=== PATIENT | male | born 1940 | race Caucasian/White ===

== ENCOUNTER 2018-12-30 21:57 | Inpatient (IN) | payer MEDICARE ==
[~2018-12-30] VITALS: Ht 188 cm; Wt 105.7 kg
--- NOTE | 2018-12-30 22:15 | ER Report ---
History and Physical Time Seen By MD: 22:04 Hx. of Stated Complaint: HP STATES THAT PATIENT WAS DRIVING AND DISORIENTED. PATIENT DENIES TAKING ANY SUBSTANCES OR ETOH HPI/ROS CHIEF COMPLAINT: longterm clearance HISTORY OF PRESENT ILLNESS: This is a 78 year old male. brought to the ER for longterm clearance. He was pulled over, disoriented, denied any substance abuse. Highway Patrol said he had been weaving all over the road and then was not acting normally. He says that he was sick and did have vomiting yesterday, says both he and his had the stomach bug and were throwing up. He was in [place] and checked out of the hotel late because of vomiting. He had tried to drink water. Highway patrol indicated that there were a lot of pills scattered around the vehicle, they were unable to identify them. The patient does not seem intoxicated. He denies any pain. He has had a mild cough. Allergies: Coded Allergies: No Known Drug Allergies (Unverified , 12/30/18) Home Meds Unable to Obtain Active Prescriptions or Reported Meds Reviewed Nurses Notes: Yes Constitutional Vital Sign - Last 24 Hours 12/30/18 12/30/18 12/30/18 12/30/18 22:05 22:15 22:29 22:34 Temp 100.0 Pulse 84 82 Resp 15 B/P (MAP) 173/88 146/108 (121) Pulse Ox 88 94 O2 Delivery Room Air O2 Flow Rate 2.0 12/30/18 12/30/18 12/30/18 12/30/18 23:00 23:04 23:13 23:30 Pulse ??? B/P (MAP) ???/??? (1615) 169/85 (113) 139/50 (79) 12/30/18 12/31/18 12/31/18 12/31/18 23:34 00:00 00:04 00:32 Pulse 81 79 75 B/P (MAP) 168/86 (113) Pulse Ox 95 99 99 12/31/18 12/31/18 12/31/18 12/31/18 00:37 01:00 01:07 01:30 Pulse 77 70 B/P (MAP) 163/92 (115) 161/80 (107) Pulse Ox 95 94 Intake and Output 412/30/18 12/31/18 14:59 22:59 06:59 Intake Total 1000 ml Balance 1000 ml Physical Exam General Appearance: Alert, no acute distress. He is a little weak. Appears at times to not be fully oriented and mild confusion. Eyes: Pupils equal and round, extraocular movements are intact, reactive to light, no injection. ENT: Normal oral mucosa. Mucous membranes are a little dry. Normal nasal mucosa. Tympanic membranes are normal. Neck: Neck is supple and non tender. Respiratory: Chest is non tender, lungs are clear to auscultation. Cardiac: regular rate and rhythm, normal capillary refill and pulses. Gastrointestinal: Abdomen is soft and non tender, nondistended, bowel sounds normal. Musculoskeletal: Extremities have full range of motion. Non tender. Skin: No rashes or lesions. Neuro: Alert, oriented x 3, but this does seem to wax and wane. Moving all extremities without focal deficits. DIFFERENTIAL DIAGNOSIS: After history and physical exam differential diagnosis was considered for a patient here for legal blood draw and for longterm clearance. There seems to be something not quite right about this situation. He does not appear or smell intoxicated. I feel that there is more likely a medical cause of the problems he is having and wanted to do further workup. Medical Decision Making Data Points Result Diagram: 12/30/18224212/30/182242 Laboratory Hematology Test 12/30/18 22:30 12/30/18 22:43 12/30/18 23:03 Urine Color [place] Urine Clarity Slightly-cloudy Urine pH 5.0 pH (4.8-9.5) Urine Specific [place] 1.027 Urine Protein 30 mg/dL (NEGATIVE) Urine Glucose (UA) Negative mg/dL (NEGATIVE) Urine Ketones Negative mg/dL (NEGATIVE) Urine Blood Small (NEGATIVE) Urine Nitrite Negative (NEGATIVE) Urine Bilirubin Negative (NEGATIVE) Urine Urobilinogen Negative mg/dL (0.2-1.9) Urine Leukocyte Esterase Negative (NEGATIVE) Urine RBC 2 /HPF (0-2/HPF) Urine WBC 1 /HPF (0-5/HPF) Urine Squamous Epithelial Cells Moderate /LPF (</=FEW) Urine Bacteria Negative /HPF (NONE-FEW) Urine Hyaline Casts Few /LPF (NONE-FEW) Urine Mucus Few /HPF (NONE-FEW) Urine Opiates Screen Negative Urine Barbiturates Screen Negative Ur Tricyclic Antidepressants Screen Negative Urine Phencyclidine Screen Negative Urine Amphetamines Screen Negative Urine Benzodiazepines Screen Negative Urine Cocaine Screen Negative Urine Cannabinoids Screen Negative Red Blood Count 5.76 M/uL (4.00-5.60) Mean Corpuscular Volume 93.7 fL (80.0-96.0) Mean Corpuscular Hemoglobin 31.4 pg (26.0-33.0) Mean Corpuscular Hemoglobin Concent 33.5 g/dL (32.0-36.0) Red Cell Distribution Width 14.7 % (11.5-14.5) Mean Platelet Volume 8.9 fL (7.2-11.1) Neutrophils (%) (Auto) 88.5 % (39.4-72.5) Lymphocytes (%) (Auto) 4.1 % (17.6-49.6) Monocytes (%) (Auto) 6.7 % (4.1-12.4) Eosinophils (%) (Auto) 0.0 % (0.4-6.7) Basophils (%) (Auto) 0.7 % (0.3-1.4) Nucleated RBC Relative Count (auto) 0.1 /100WBC Neutrophils # (Auto) 6.9 K/uL (2.0-7.4) Lymphocytes # (Auto) 0.3 K/uL (1.3-3.6) Monocytes # (Auto) 0.5 K/uL (0.3-1.0) Eosinophils # (Auto) 0.0 K/uL (0.0-0.5) Basophils # (Auto) 0.1 K/uL (0.0-0.1) Nucleated RBC Absolute Count (auto) 0.01 K/uL Sodium Level 142 mmol/L (137-145) Potassium Level 4.1 mmol/L (3.5-5.0) Chloride Level 102 mmol/L (98-107) Carbon Dioxide Level 29 mmol/L (22-30) Blood Urea Nitrogen 22 mg/dl (9-21) Creatinine 1.10 mg/dl (0.66-1.25) Glomerular Filtration Rate Calc > 60.0 Random Glucose 120 mg/dl (75-110) Calcium Level 9.1 mg/dl (8.4-10.2) Total Bilirubin 1.8 mg/dl (0.2-1.3) Aspartate Amino Transf (AST/SGOT) 107 U/L (0-35) Alanine Aminotransferase (ALT/SGPT) < 6 U/L (0-56) Alkaline Phosphatase 177 U/L (0-126) Total Protein 7.8 g/dl (6.3-8.2) Albumin 4.6 g/dl (3.5-5.0) Serum Alcohol < 10 mg/dl D-Dimer Quantitative (PE/DVT) 1.35 ug/ml (0-0.50) Troponin I 0.027 ng/ml Chemistry Test 12/30/18 22:30 12/30/18 22:43 12/30/18 23:03 Urine Color Christiana Urine Clarity Slightly-cloudy Urine pH 5.0 pH (4.8-9.5) Urine Specific [place] 1.027 Urine Protein 30 mg/dL (NEGATIVE) Urine Glucose (UA) Negative mg/dL (NEGATIVE) Urine Ketones Negative mg/dL (NEGATIVE) Urine Blood Small (NEGATIVE) Urine Nitrite Negative (NEGATIVE) Urine Bilirubin Negative (NEGATIVE) Urine Urobilinogen Negative mg/dL (0.2-1.9) Urine Leukocyte Esterase Negative (NEGATIVE) Urine RBC 2 /HPF (0-2/HPF) Urine WBC 1 /HPF (0-5/HPF) Urine Squamous Epithelial Cells Moderate /LPF (</=FEW) Urine Bacteria Negative /HPF (NONE-FEW) Urine Hyaline Casts Few /LPF (NONE-FEW) Urine Mucus Few /HPF (NONE-FEW) Urine Opiates Screen Negative Urine Barbiturates Screen Negative Ur Tricyclic Antidepressants Screen Negative Urine Phencyclidine Screen Negative Urine Amphetamines Screen Negative Urine Benzodiazepines Screen Negative Urine Cocaine Screen Negative Urine Cannabinoids Screen Negative White Blood Count 7.8 k/uL (4.5-11.0) Red Blood Count 5.76 M/uL (4.00-5.60) Hemoglobin 18.1 g/dL (14.0-18.0) Hematocrit 53.9 % (42.0-52.0) Mean Corpuscular Volume 93.7 fL (80.0-96.0) Mean Corpuscular Hemoglobin 31.4 pg (26.0-33.0) Mean Corpuscular Hemoglobin Concent 33.5 g/dL (32.0-36.0) Red Cell Distribution Width 14.7 % (11.5-14.5) Platelet Count 178 K/uL (150-450) Mean Platelet Volume 8.9 fL (7.2-11.1) Neutrophils (%) (Auto) 88.5 % (39.4-72.5) Lymphocytes (%) (Auto) 4.1 % (17.6-49.6) Monocytes (%) (Auto) 6.7 % (4.1-12.4) Eosinophils (%) (Auto) 0.0 % (0.4-6.7) Basophils (%) (Auto) 0.7 % (0.3-1.4) Nucleated RBC Relative Count (auto) 0.1 /100WBC Neutrophils # (Auto) 6.9 K/uL (2.0-7.4) Lymphocytes # (Auto) 0.3 K/uL (1.3-3.6) Monocytes # (Auto) 0.5 K/uL (0.3-1.0) Eosinophils # (Auto) 0.0 K/uL (0.0-0.5) Basophils # (Auto) 0.1 K/uL (0.0-0.1) Nucleated RBC Absolute Count (auto) 0.01 K/uL Glomerular Filtration Rate Calc > 60.0 Calcium Level 9.1 mg/dl (8.4-10.2) Total Bilirubin 1.8 mg/dl (0.2-1.3) Aspartate Amino Transf (AST/SGOT) 107 U/L (0-35) Alanine Aminotransferase (ALT/SGPT) < 6 U/L (0-56) Alkaline Phosphatase 177 U/L (0-126) Total Protein 7.8 g/dl (6.3-8.2) Albumin 4.6 g/dl (3.5-5.0) Serum Alcohol < 10 mg/dl D-Dimer Quantitative (PE/DVT) 1.35 ug/ml (0-0.50) Troponin I 0.027 ng/ml Coagulation Test 12/30/18 23:03 D-Dimer Quantitative (PE/DVT) 1.35 ug/ml Toxicology Test 12/30/18 22:30 12/30/18 22:43 Urine Opiates Screen Negative Urine Barbiturates Screen Negative Ur Tricyclic Antidepressants Screen Negative Urine Phencyclidine Screen Negative Urine Amphetamines Screen Negative Urine Benzodiazepines Screen Negative Urine Cocaine Screen Negative Urine Cannabinoids Screen Negative Serum Alcohol < 10 mg/dl Urinalysis Test 12/30/18 22:30 Urine Color [place] Urine Clarity Slightly-cloudy Urine pH 5.0 pH (4.8-9.5) Urine Specific [place] 1.027 Urine Protein 30 mg/dL (NEGATIVE) Urine Glucose (UA) Negative mg/dL (NEGATIVE) Urine Ketones Negative mg/dL (NEGATIVE) Urine Blood Small (NEGATIVE) Urine Nitrite Negative (NEGATIVE) Urine Bilirubin Negative (NEGATIVE) Urine Urobilinogen Negative mg/dL (0.2-1.9) Urine Leukocyte Esterase Negative (NEGATIVE) Urine RBC 2 /HPF (0-2/HPF) Urine WBC 1 /HPF (0-5/HPF) Urine Squamous Epithelial Cells Moderate /LPF (</=FEW) Urine Bacteria Negative /HPF (NONE-FEW) Urine Hyaline Casts Few /LPF (NONE-FEW) Urine Mucus Few /HPF (NONE-FEW) ED Course/Re-evaluation ED Course CT scan of the brain was obtained and other than age related atrophy, I did not see any problems. There is an old left basal ganglia lacunar infarct and extensive white matter small vessel ischemic changes. Labs show mild pre-renal state, but normal electrolytes and white count. There is a left shift present on CBC. Temp on admission was 100.0, so mild elevation, but no fever. He has mild cough, nonproductive. Alcohol and drug screen were negative. EKG looked to be a normal sinus rhythm, with underlying electronic noise on the EKG. While getting up and walking to the bathroom, the mild hypoxia of 88% on room air that we had seen earlier, decreased significantly. His mental status seemed worse as well. Placed on oxygen and this immediately improved. Troponin was negative. D- dimer was elevated. CTA chest obtained, and showed a right middle lobe ground glass opacity, no pulmonary embolism. His son is here and says that he is confused, not his normal mental status. He said that he had recently been diagnosed with dementia, and had multiple other neurologic testing. The thought is that his condition tonight is a combination of factors including dehydration, pneumonia, hypoxia, and the dementia combined. Discussed with Dr. Mary Lundberg and was admitted to the medical floor. Decision to Disposition Date: Dec 31, 2018 Decision to Disposition Time: 01:58 Depart Departure Latest Vital Signs Vital Signs Date Time Temp Pulse Resp B/P (MAP) Pulse Ox O2 Delivery O2 Flow Rate FiO2 12/31/18 01:30 161/80 (107) 12/31/18 01:07 70 94 12/30/18 22:15 2.0 12/30/18 22:05 100.0 15 Room Air Impression: Primary Impression: Pneumonia Additional Impressions: Dehydration Altered mental status Condition: Improved Disposition: Admitted from ER New Scripts Unable to Obtain Active Prescriptions or Reported Meds Problem Qualifiers Primary Impression: Pneumonia Pneumonia type: due to unspecified organism Laterality: right Lung location: middle lobe of lung Qualified Codes: J18.1 - Lobar pneumonia, unspecified organism Additional Impressions: Altered mental status Altered mental status type: transient alteration of awareness Qualified Codes: R40.4 - Transient alteration of awareness PAVAN NOWAK MD Dec 30, 2018 22:15
[2018-12-30] MEDS ORDERED: NS(*) 0.9% 1000 ML BAG 1,000 ML IV ONE (22:20)
[2018-12-30 23:02] LABS: PLATELET COUNT, AUTOMATED 178 K/uL (150-450)
--- NOTE | 2018-12-30 23:39 | RADIOLOGY IMAGING REPORT ---
FACILITY: [facility] PATIENT NAME: Calvin Fatima : 1940 MR: [id number] V: [id number] EXAM DATE: ORDERING PHYSICIAN: PAVAN NOWAK TECHNOLOGIST: Location: [facility] Patient: Calvin Fatima : 1940 Visit/Account:[id number] Date of Sevice: 12/30/2018 CT Head without contrast Indication: Disoriented. Mental status change. Comparison: None available Technique: Axial CT images were obtained through the brain from the skull base to the vertex without administration of IV contrast. Reformatted coronal and sagittal images were also obtained. One of the following dose optimization techniques was utilized in the performance of this exam: Autom ated exposure control; adjustment of the mA and/or kV according to the patient's size; or use of an i terative reconstruction technique. Specific details can be referenced in the facility's radiology C T exam operational policy. Findings: No evidence of mass, mass effect, or midline shift. No acute intracranial hemorrhage or acute territorial infarction. There are fairly extensive areas of low-attenuation involving the periventricular white matter. Appea joseph would be consistent with changes of chronic small vessel ischemia. Old lacunar infarct involves the left basal ganglia. There is mild dilatation of the lateral ventricles with prominent sulci consistent with underlying di ffuse cerebral atrophy. Scattered ethmoid air cells appear partially opacified. There is a mucous retention cyst within the r ight maxillary sinus. IMPRESSION: 1. No acute intracranial abnormality. 2. Extensive periventricular white matter changes most consistent with chronic small vessel ischemia. 3. Small, old left basal ganglia lacunar infarct. 4. Mild diffuse cerebral atrophy. Report Dictated By: Lucian Lyle at 12/30/2018 11:29 PM Report E-Signed By: Lucian Lyle at 12/30/2018 11:35 PM WSN:[id number]
[2018-12-30] MEDS ORDERED: NS(*) 0.9% 50 ML BAG 50 ML ONE (23:54)
[2018-12-30] MEDS ORDERED: IOPAMIDOL 76% 150 ML INFUS BTL 150 ML ONE (23:54)
--- NOTE | 2018-12-31 00:52 | RADIOLOGY IMAGING REPORT ---
FACILITY: [facility] [place] PATIENT NAME: Calvin Fatima : 1940 MR: [id number] V: [id number] EXAM DATE: ORDERING PHYSICIAN: PAVAN NOWAK TECHNOLOGIST: Location: [facility] Patient: Calvin Fatima : 1940 Visit/Account:[id number] Date of Sevice: 12/30/2018 CT angiogram chest with contrast Indication: Short of breath. Hypoxia. Elevated d-dimer. Comparison: None available. Technique: Axial CT images are obtained through the chest after administration of 75 mL Isovue 370 IV contrast. Reformatted coronal and sagittal images were reviewed as well as coronal MIP images. One o f the following dose optimization techniques was utilized in the performance of this exam: Automated exposure control; adjustment of the mA and/or kV according to the patient's size; or use of an iterat denise reconstruction technique. Specific details can be referenced in the facility's radiology CT exa m operational policy. FINDINGS: There is no evidence of acute pulmonary embolism. There is no axillary adenopathy. No enlarged hilar or mediastinal lymph nodes are seen. There are dense atherosclerotic calcifications seen involving the ascending thoracic aorta. Dense cor onary artery atherosclerotic calcifications are seen. Atherosclerosis involves the aortic arch and th e origins of the arch vessels. No pericardial effusion or pleural effusion is seen. Low-attenuation, indeterminant nodule seen in th e right thyroid lobe. Examination of the lung windows demonstrates a 5 mm nodule within the right upper lobe on image 70. A nodule within the right lower lobe on image 152 measures 8 mm in size. Patchy areas of groundglass a re seen within the medial segment of the right middle lobe. This may reflect early pneumonia. Depende nt atelectasis involves both lower lobes. On the left, there is a major fissural lymph node or nodule identified which measures 6 mm on image 2/2. No left-sided infiltrate. Calcified gallstone is seen within the gallbladder. There may be a cyst near the gallbladder fossa. T his is incompletely evaluated. Diffuse idiopathic skeletal hyperostosis involves the thoracic spine. No acute compression deformity. IMPRESSION: 1. No evidence of acute pulmonary embolism. 2. Patchy groundglass opacities within the medial segment of the right middle lobe suspicious for inf ectious/inflammatory process. Correlate for early pneumonia. 3. Right upper lobe and right lower lobe pulmonary nodules with a fissural nodule seen in the left ma omid fissure. See recommendations below. 4. Dense atherosclerosis involving the descending aorta and coronary arteries. 5. Cholelithiasis. 6. Indeterminant low-attenuation nodule within the right thyroid lobe. This could be further assessed with sonography. FLEISCHNER SOCIETY FOLLOW-UP GUIDELINES FOR NEWLY DETECTED INCIDENTAL NODULES IN PERSONS 35 YEARS OF AGE OR OLDER. *These recommendations do NOT apply to lung cancer screening, patients with immunosuppression or wilmer ents with a known primary malignancy. MULTIPLE SOLID NODULES If nodule size is < 6 mm: * Low risk patient ? No routine follow-up. * High risk patient ? Optional CT at 12 months. If nodule size is 6-8 mm: * Low risk patient ? CT at 3-6 months, then consider CT at 18-24 months if no change. * High risk patient ? CT at 3-6 months, then CT at 18-24 months if no change. If nodule size is > 8 mm: * Low risk patient ? CT at 3-6 months, then consider CT at 18-24 months if no change. * High risk patient ? CT at 3-6 months, then consider CT at 18-24 months if no change. LOW RISK PATIENT: Minimal or absent history of tobacco use and of other known risk factors. HIGH RISK PATIENT: Tobacco use, family history of lung cancer, upper pulmonary lobe location of nodul e, presence of emphysema, pulmonary fibrosis, older age. Teodoro H, Nilson DP, Humphreyo JM, et al. Guidelines for Management of Incidental Pulmonary Nodules Dete cted on CT Images: From the Fleischner Society 2017. Radiology. [facility] Report Dictated By: Lucian Lyle at 12/31/2018 12:36 AM Report E-Signed By: Lucian Lyle at 12/31/2018 12:48 AM WSN:[id number]
--- NOTE | 2018-12-31 01:03 | EKG ---
FACILITY: [facility] PATIENT NAME: PATRICIA RICE : [id number] MR: [id number] V: [id number] EXAM DATE: ORDERING PHYSICIAN: PAVAN NOWAK TECHNOLOGIST: GEOVANY Test Reason : SOB Blood Pressure : / mmHG Vent. Rate : 077 BPM Atrial Rate : 077 BPM P-R Int : 168 ms QRS Dur : 092 ms QT Int : 374 ms P-R-T Axes : 022 004 067 degrees QTc Int : 423 ms Normal sinus rhythm Normal ECG No previous ECGs available Confirmed by Adolfo Benedict ([id number]) on 12/31/2018 7:26:44 AM Referred By: Confirmed By:Adolfo Lundberg
[2018-12-31] MEDS ORDERED: AZITHROMYCIN(*) 500 MG 500 MG in NS(*) 0.9% 250 ML BAG 250 ML IVPB ONE (01:50)
[2018-12-31] MEDS ORDERED: cefTRIAXone(*) 1 GM VIAL 1 GM in NS(*) 0.9% 100 ML MINI-BAG 100 ML IVPB ONE (01:50)
[2018-12-31 02:38] VITALS: BP 156/79
[2018-12-31] MEDS ORDERED: LISI20TA29 PO (02:42)
[2018-12-31] MEDS ORDERED: INFLUENZA VIRUS VAC 0.5ML SYR IM ONLY ONE (02:45)
[2018-12-31] MEDS ORDERED: ACETAMINOPHEN 325 MG TAB PO PRN (02:45)
[2018-12-31] MEDS ORDERED: FLUSH 10 ML SYR IVP PRN (02:45)
[2018-12-31] MEDS ORDERED: NS(*) 0.9% 1000 ML BAG 1,000 ML IV ONE (02:45)
[2018-12-31] MEDS ORDERED: ALBUTEROL/IPRATROPIUM 3 ML NEB NEB PRN (02:45)
[2018-12-31] MEDS ORDERED: ALBUTEROL 2.5 MG/3 ML NEB NEB PRN (02:45)
[2018-12-31] MEDS ORDERED: ASPI-1471 PO (02:46)
[2018-12-31] MEDS ORDERED: VITA1CAP46 PO (02:46)
[2018-12-31] MEDS ORDERED: VITA-200 PO (02:46)
[2018-12-31] MEDS ORDERED: [UNRECOGNIZED DRUG - OTHER] (02:46)
[2018-12-31] MEDS ORDERED: MULT1CAP59 PO (02:49)
[2018-12-31] MEDS ORDERED: [UNRECOGNIZED DRUG - OTHER] (02:49)
[2018-12-31] MEDS ORDERED: UBID200C21 PO (02:49)
--- NOTE | 2018-12-31 03:04 | History & Physical ---
History of Present Illness Chief Complaint encephalopathy History of Present Illness 78M presented for encephalopathy. PMHx KAIN but unable to obtain further 10/[address] [place] [address] patrol brought patient for fdc clearance after driving erratically. MARIAM was negative on arrival and patient was mildly hypoxic and confused. CT head negative. Mildly elevated d-dimer led to CTA which showed possible infiltrate. Son reports patient did have nausea and vomiting Saturday. Patient mental status improved with supplemental O2 and he is able to tell me he also took an antihistamine but not sure which. History Unable To Obtain Past Medical: Unable to Obtain/Update Home Meds Reported Medications [Blood boost] No Conflict Check 12/31/18 Vitamin B Complex (VITAMIN B COMPLEX) 1 Each Capsule, 1 EACH PO DAILY, CAPSULE 12/31/18 Vitamin E Acetate (VITAMIN E) 400 Unit Capsule, 400 UNIT PO DAILY, CAPSULE 12/31/18 Aspirin (ASPIR 81) 81 Mg Tablet.dr, 81 MG PO QDAY, TAB 12/31/18 Lisinopril (LISINOPRIL) 20 Mg Tablet, 30 MG PO QDAY, TAB 12/31/18 Allergies: Coded Allergies: No Known Drug Allergies (Unverified , 12/30/18) Review of Systems All Systems Reviewed/Normal: Yes, Except as Noted Neurological: Confusion Exam Vital Signs Vital Signs Date Time Temp Pulse Resp B/P (MAP) Pulse Ox O2 Delivery O2 Flow Rate FiO2 12/31/18 01:35 70 93 12/31/18 01:30 161/80 (107) 12/30/18 22:15 2.0 12/30/18 22:05 100.0 15 Room Air General Appearance: No Acute Distress, Afebrile Neuro: No Gross deficits ENT: Normal Cardiovascular: Normal Rhythm & Peripheral Pulses Respiratory: Other (anterior rales) GI: Abd Soft and Non-Tender Musculoskeletal: No Weakness/Pain Medical Decision Making Data Points Result Diagram: 12/30/18224212/30/182242 Assessment and Plan Problems: (1) Altered mental status Status: Acute Assessment & Plan: Improved with supplemental O2, likely multifactorial inclu ding baseline dementia, antihistamine, hypoxia. CT head negative. (2) Acute respiratory failure with hypoxia Assessment & Plan: Secondary to pneumonia. Supplemental O2 wean as tolerated. CPAP provided for chronic KAIN. (3) Pneumonia Status: Acute Assessment & Plan: R middle lobe infiltrate with ground glass opacities. Begin ceftriaxone and azithromycin, breathing treatments PRN, flutter therapy. Sputum Cx ordered. Venous Thromboembolism Antithrombotics Is Pt On Any Antithrombotics?: Yes Exam Sepsis Risk: No Definite Risk Problem Qualifiers (1) Altered mental status: Altered mental status type: transient alteration of awareness Qualified Codes: R40.4 - Transient alteration of awareness (2) Pneumonia: Pneumonia type: due to unspecified organism Laterality: right Lung location: middle lobe of lung Qualified Codes: J18.1 - Lobar pneumonia, unspecified organism PHAN MCLAIN DO Dec 31, 2018 03:04
[2018-12-31 06:18] LABS: PLATELET COUNT, AUTOMATED 146 K/uL (150-450)
[2018-12-31] MEDS ORDERED: LISINOPRIL 10 MG TAB PO SCH (09:00)
[2018-12-31] MEDS ORDERED: ASPIRIN 81 MG ENTERIC COATED PO SCH (09:00)
[2018-12-31] MEDS ORDERED: ENOXAPARIN 40 MG/0.4ML SYR SC SCH (09:00)
[2018-12-31 09:31] VITALS: BP 152/81
[2018-12-31 10:02] VITALS: Ht 188 cm; Wt 105.7 kg
--- NOTE | 2018-12-31 10:08 | Hospitalist Progress Note ---
Subjective Progress Notes Subjective He was admitted with pneumonia. He doesn't appear to have any mental status issues this morning. Reports he feels well. Patient Complains of: Cardiovascular: No: Chest Pain Respiratory: No: Shortness of Breath Physical Exam Vital Signs Date Time Temp Pulse Resp B/P (MAP) Pulse Ox O2 Delivery O2 Flow Rate FiO2 12/31/18 09:31 97.5 66 24 152/81 (104) 92 Nasal Cannula 1.0 12/31/18 03:29 40.0 Intake and Output 12/31/18 01:00 Intake Total 1000 ml Balance 1000 ml IV Total 1000 ml General Appearance: Alert, Awake, No Acute Distress, Afebrile Neuro: No Gross deficits Cardiovascular: Regular Rate and Rhythm Respiratory: No Respiratory Distress, Other (diffuse crackles to bases) GI: Soft and Non-Tender Psych: Alert & Oriented X3, Appropriate Mood & Affect Result Diagram: 12/31/1851112/31/18511 Assessment and Plan Problems: (1) Altered mental status Status: Acute Assessment & Plan: Improved with supplemental O2, likely multifactorial inc luding baseline dementia, antihistamine, hypoxia. CT head negative. (2) Acute respiratory failure with hypoxia Assessment & Plan: Secondary to pneumonia. Supplemental O2 wean as tolerated. CPAP provided for chronic KAIN. (3) Pneumonia Status: Acute Assessment & Plan: R middle lobe infiltrate with ground glass opacities. Begin ceftriaxone and azithromycin, breathing treatments PRN, flutter therapy. Sputum Cx ordered. Exam Sepsis Risk: No Definite Risk Problem Qualifiers (1) Altered mental status: Altered mental status type: transient alteration of awareness Qualified Codes: R40.4 - Transient alteration of awareness (2) Pneumonia: Pneumonia type: due to unspecified organism Laterality: right Lung location: middle lobe of lung Qualified Codes: J18.1 - Lobar pneumonia, unspecified organism DIDIER GUERRERO [employer] Dec 31, 2018 10:08
[2018-12-31] MEDS ORDERED: CEF300 PO (11:50)
[2018-12-31] MEDS ORDERED: AZIT-1 PO (11:50)
--- NOTE | 2018-12-31 11:54 | Hospitalist Depart ---
Discharge Summary Reason for Hosp/Final Diag: (1) Altered mental status Status: Acute Hospital Course & Plan: Improved with supplemental O2, likely multifactorial including baseline dementia, antihistamine, hypoxia. CT head negative. (2) Acute respiratory failure with hypoxia Hospital Course & Plan: Secondary to pneumonia. Supplemental O2 wean as tolerated. CPAP provided for chronic KAIN. He will be discharged home with supplemental oxygen. (3) Pneumonia Status: Acute Hospital Course & Plan: R middle lobe infiltrate with ground glass opacities. He was started on ceftriaxone and azithromycin, breathing treatments PRN, flutter therapy. Sputum Cx ordered. He will be transitioned to Omnicef and Azithromycin. He will follow up with PCP in one week. Departure Latest Vital Signs Vital Signs 12/31/18 12/31/18 03:29 09:31 Temp 97.5 Pulse 66 Resp 24 B/P (MAP) 152/81 (104) Pulse Ox 92 O2 Delivery Nasal Cannula O2 Flow Rate 1.0 FiO2 40.0 Weight (Pounds): 233 Result Diagram: 12/31/1851112/31/18511 Condition: Improved Discharge: Home, Self Care Discharge Instructions Home Meds Active Scripts Cefdinir 300 Mg Cap (OMNICEF 300 MG CAP (OR EQUIV)) 300 Mg Cap, 300 MG PO BID for 6 Days, #12 CAP Prov:DIDIER GUERRERO [employer] 12/31/18 Azithromycin (ZITHROMAX) 250 Mg Tablet, 1 TAB PO QDAY for 4 Days, #4 TAB Prov:DIDIER GUERRERO [employer] 12/31/18 Reported Medications Multivitamin (MULTIVITAMINS) 1 Each Capsule, 1 EACH PO, CAPSULE 12/31/18 Ubidecarenone (CO Q-10) Unknown Strength Capsule, PO, CAPSULE 12/31/18 Vitamin B Complex (VITAMIN B COMPLEX) 1 Each Capsule, 1 EACH PO DAILY, CAPSULE 12/31/18 Vitamin E Acetate (VITAMIN E) 400 Unit Capsule, 400 UNIT PO DAILY, CAPSULE 12/31/18 Aspirin (ASPIR 81) 81 Mg Tablet.dr, 81 MG PO QDAY, TAB 12/31/18 Lisinopril (LISINOPRIL) 20 Mg Tablet, 30 MG PO QDAY, TAB 12/31/18 Discontinued Reported Medications [Nitrous Oxide] No Conflict Check 12/31/18 [Blood boost] No Conflict Check 12/31/18 Diet: Regular Activity: As Tolerated Special Instructions: Take antibiotics as prescribed until gone. Follow up in one week with primary care provider. Wear CPAP at night. Wear oxygen at all times. Venous Thromboembolism Antithrombotics Is Pt On Any Antithrombotics?: Yes Problem Qualifiers (1) Altered mental status: Altered mental status type: transient alteration of awareness Qualified Codes: R40.4 - Transient alteration of awareness (2) Pneumonia: Pneumonia type: due to unspecified organism Laterality: right Lung location: middle lobe of lung Qualified Codes: J18.1 - Lobar pneumonia, unspecified organism DIDIER GUERRERO [facility] Dec 31, 2018 11:54
[2018-12-31] MEDS ORDERED: AZITHROMYCIN(*) 500 MG 500 MG in NS(*) 0.9% 250 ML BAG 250 ML IVPB SCH ×2 (20:30→23:00)
[2018-12-31] MEDS ORDERED: cefTRIAXone 1 GM VIAL IVP SCH ×2 (21:00→22:30)
== END 2018-12-31 14:09 | disposition home or self-care (01) | DRG 193 ==
LOC: ER 22:14 → MED 12-31 01:56
PROVIDERS: ADMIT Internal Medicine; ATTEND Internal Medicine
DX: J18.1 Lobar pneumonia, unspecified organism (principal); J96.01 Acute respiratory failure with hypoxia; G47.33 Obstructive sleep apnea (adult) (pediatric); F03.90 Unspecified dementia, unspecified severity, without behavioral disturbance, psychotic disturbance, mood disturbance, and anxiety; E86.0 Dehydration; R40.4 Transient alteration of awareness
CPT/HCPCS: 36415; 70450; 71275; 80305; 80320; 81001; 82040; 82247; 82310; 82374; 82435; 82565; 82947; 84075; 84132; 84155; 84295; 84450; 84460; 84484; 84520; 85025; 85379; 93005; 94660; 96360; 99285; J0456; J0696; J1650; J7030; J7050; Q9967

== ENCOUNTER → 2018-12-30 | Outpatient (REF) ==
[~2018-12-30] MED LIST: ASPI-1471 PO; AZIT-1 PO; CEF300 PO; LISI20TA29 PO; MULT1CAP59 PO; UBID200C21 PO; VITA-200 PO; VITA1CAP46 PO; [UNRECOGNIZED DRUG - OTHER]; [UNRECOGNIZED DRUG - OTHER]
== END ==
LOC: LAB 21:53
PROVIDERS: ATTEND Nurse Practitioner
DX: Z02.83 Encounter for blood-alcohol and blood-drug test (principal)
CPT/HCPCS: 99001